=== PATIENT | male | born 1940 | race Caucasian/White ===

== ENCOUNTER 2016-06-20 10:00 | Outpatient (CLI) | payer OTHER, MEDICARE ==
[2016-06-20] MEDS ORDERED: ACETAMINOPHEN 325 MG TABLET PO PRN (10:02)
[2016-06-20] MEDS ORDERED: diphenhydrAMINE 25 MG CAPSULE PO PRN (10:02)
[2016-06-20] MEDS ORDERED: INFLIXIMAB IV ONE (10:02)
[2016-06-20] MEDS ORDERED: SODIUM CHLORIDE 0.9% IV ONE (10:02)
[2016-06-20] MEDS ORDERED: Sodium Chloride 0.9% 50 ML IV PRN (10:02)
[2016-06-20 10:29] VITALS: RESP 20; TEMP 97.1
[2016-06-20] MEDS: NORMAL SALINE 10 ML SYRINGE FLUSH IVP PRN ×2 (10:30→12:31)
== END 2016-06-20 12:35 | disposition home or self-care (01) ==
LOC: IV THERAPY 10:00
PROVIDERS: ATTEND Emergency Medicine
DX: M06.89 Other specified rheumatoid arthritis, multiple sites (principal)
CPT/HCPCS: 99211; J1745; 96365; 96366; J7050

== ENCOUNTER 2016-07-21 14:51 | Outpatient (CLI) | payer OTHER, MEDICARE ==
[2016-07-21] MEDS ORDERED: SODIUM CHLORIDE 0.9% IV ONE (15:00)
[2016-07-21] MEDS ORDERED: diphenhydrAMINE 25 MG CAPSULE PO PRN (15:00)
[2016-07-21] MEDS ORDERED: ACETAMINOPHEN 325 MG TABLET PO PRN (15:00)
[2016-07-21] MEDS ORDERED: INFLIXIMAB IV ONE (15:00)
[2016-07-21] MEDS: NORMAL SALINE 10 ML SYRINGE FLUSH IVP PRN ×2 (15:14→17:20)
[2016-07-21 16:26] VITALS: RESP 14; TEMP 97.3
== END 2016-07-21 17:20 | disposition home or self-care (01) ==
LOC: IV THERAPY 14:51
PROVIDERS: ATTEND Personal Emergency Response Attendant
DX: M06.89 Other specified rheumatoid arthritis, multiple sites (principal)
CPT/HCPCS: 96365; 96366; 99211; J1745; J7050

== ENCOUNTER → 2016-08-12 | Outpatient (CLI) | payer OTHER, MEDICARE ==
[2016-08-12 06:18] LABS: HEMATOCRIT 47.3 % (42.0-52.0); MEAN CORPUSCULAR HEMOGLOBIN 30.6 PG (27-31); MEAN CORPUSCULAR HGB CONC 33.8 g/dL (33-37); MEAN PLATELET VOLUME 9.3 FL (7.4-12.2); RDW COEFFICIENT OF VARIATION 14.3 % (11.5-14.5); RED BLOOD COUNT 5.23 10^6/uL (4.70-6.10); WHITE BLOOD COUNT 9.47 10^3/uL (4.8-10.8)
[2016-08-12 06:29] LABS: BILIRUBIN,TOTAL 0.8 mg/dL (0.3-1.2); CALCIUM 9.6 mg/dL (8.7-10.7); LDL CHOLESTEROL,CALCULATED 63.8 mg/dL; TOTAL PROTEIN 7.6 g/dL (6.1-8.0)
[2016-08-12 06:45] LABS: PLATELET MORPHOLOGY COMMENT SEE COMMENTS (NORM)
[2016-08-12 06:47] LABS: BAND NEUTROPHILS % 1 % (0-10); BASOPHILS % (MANUAL) 0 % (0-1); EOSINOPHILS % (MANUAL) 5 % (0-8); LYMPHOCYTES % (MANUAL) 32 % (10-50); METAMYELOCYTES % 0 %; MONOCYTES % (MANUAL) 11 % (0-12); MYELOCYTES % 0 %; NEUTROPHILS % (MANUAL) 51 % (50-80); PROMYELOCYTES % 0 %
[2016-08-12 07:42] LABS: ERYTHROCYTE SEDIMENTATION RATE 6 MM/HR (0-15)
== END ==
LOC: LAB 06:04
PROVIDERS: ATTEND Internal Medicine
DX: M06.89 Other specified rheumatoid arthritis, multiple sites (principal); E78.5 Hyperlipidemia, unspecified; I10 Essential (primary) hypertension
CPT/HCPCS: 36415; 80053; 80061; 82550; 85007; 85652

== ENCOUNTER 2016-08-26 08:58 | Outpatient (CLI) | payer OTHER, MEDICARE ==
[2016-08-26] MEDS ORDERED: SODIUM CHLORIDE 0.9% IV ONE (09:00)
[2016-08-26] MEDS ORDERED: INFLIXIMAB IV ONE (09:00)
[2016-08-26] MEDS ORDERED: LIDOCAINE W/ SODIUM BICARB 0.5 ML SYR SUBD PRN (09:00)
[2016-08-26] MEDS ORDERED: HEPARIN 500 UNIT/5 ML SYRINGE FOR CENTRAL LINE IVP PRN (09:00)
[2016-08-26] MEDS ORDERED: NORMAL SALINE 10 ML SYRINGE FLUSH IVP PRN (09:00)
[2016-08-26 09:30] VITALS: RESP 20; TEMP 97.4
== END 2016-08-26 11:40 | disposition home or self-care (01) ==
LOC: IV THERAPY 08:58
PROVIDERS: ATTEND Internal Medicine
DX: M06.89 Other specified rheumatoid arthritis, multiple sites (principal)
CPT/HCPCS: 96365; 96366; 99211; J1745; J7050

== ENCOUNTER 2016-10-03 16:37 | Outpatient (CLI) | payer OTHER, MEDICARE ==
[~2016-10-03 16:37] MED LIST: ACETAMINOPHEN 325 MG TABLET PO PRN; INFLIXIMAB IV ONE; NORMAL SALINE 10 ML SYRINGE FLUSH IVP PRN; SODIUM CHLORIDE 0.9% IV ONE; diphenhydrAMINE 25 MG CAPSULE PO PRN
[2016-10-03 17:23] VITALS: RESP 20; TEMP 97.8
== END 2016-10-05 09:00 | disposition home or self-care (01) ==
LOC: IV THERAPY 16:37
PROVIDERS: ATTEND Family Medicine
DX: M06.89 Other specified rheumatoid arthritis, multiple sites (principal)
CPT/HCPCS: 96365; 96366; 99211; J1745; J7050

== ENCOUNTER 2016-11-06 08:51 | Outpatient (CLI) | payer OTHER, MEDICARE ==
[2016-11-06] MEDS ORDERED: LIDOCAINE W/ SODIUM BICARB 0.5 ML SYR SUBD PRN (09:00)
[2016-11-06] MEDS ORDERED: NORMAL SALINE 10 ML SYRINGE FLUSH IVP PRN (09:00)
[2016-11-06] MEDS ORDERED: SODIUM CHLORIDE 0.9% IV ONE (09:00)
[2016-11-06] MEDS ORDERED: HEPARIN 500 UNIT/5 ML SYRINGE FOR CENTRAL LINE IVP PRN (09:00)
[2016-11-06] MEDS ORDERED: INFLIXIMAB IV ONE (09:00)
[2016-11-06 11:24] VITALS: RESP 16; TEMP 97.5
== END 2016-11-06 11:30 | disposition home or self-care (01) ==
LOC: IV THERAPY 08:51
PROVIDERS: ATTEND Personal Emergency Response Attendant
DX: M06.89 Other specified rheumatoid arthritis, multiple sites (principal)
CPT/HCPCS: 96365; 96366; 99211; J1745; J7050

== ENCOUNTER → 2016-11-19 | Outpatient (CLI) | payer OTHER, MEDICARE ==
[2016-11-19 05:50] LABS: BASOPHILS # (AUTO) 0.06 10*3/UL; BASOPHILS % (AUTO) 0.7 % (0-1); EOSINOPHILS # (AUTO) 0.38 10*3/UL; EOSINOPHILS % (AUTO) 4.7 % (0-8); HEMATOCRIT 46.6 % (42.0-52.0); LYMPHOCYTES # (AUTO) 2.51 10*3/uL; MEAN CORPUSCULAR HEMOGLOBIN 31.2 PG (27-31); MEAN CORPUSCULAR HGB CONC 34.3 g/dL (33-37); MEAN CORPUSCULAR VOLUME 90.8 FL (80-90); MONOCYTES % (AUTO) 17.5 % (5-15); NEUTROPHILS # (AUTO) 3.64 10*3/UL; NEUTROPHILS % (AUTO) 45.6 % (50-80); RED BLOOD COUNT 5.13 10^6/uL (4.70-6.10)
[2016-11-19 05:51] LABS: PLATELET MORPHOLOGY COMMENT NORMAL MORPHOLOGY (NORM); RBC MORPHOLOGY COMMENT NORMAL MORPHOLOGY (NORM); WBC MORPHOLOGY COMMENT NORMAL MORPHOLOGY (NORM)
[2016-11-19 06:02] LABS: SERUM ALBUMIN 3.8 g/dL (3.5-4.8)
== END ==
LOC: LAB 05:37
PROVIDERS: ATTEND Internal Medicine
DX: M06.9 Rheumatoid arthritis, unspecified (principal); I10 Essential (primary) hypertension; E78.5 Hyperlipidemia, unspecified; C61 Malignant neoplasm of prostate; I71.4 Abdominal aortic aneurysm, without rupture
CPT/HCPCS: 36415; 80053; 85025; 99214; G0463

== ENCOUNTER 2016-12-11 08:58 | Outpatient (CLI) | payer OTHER, MEDICARE ==
[2016-12-11] MEDS ORDERED: NORMAL SALINE 10 ML SYRINGE FLUSH IVP PRN (09:00)
[2016-12-11] MEDS ORDERED: HEPARIN 500 UNIT/5 ML SYRINGE FOR CENTRAL LINE IVP PRN (09:00)
[2016-12-11] MEDS ORDERED: LIDOCAINE W/ SODIUM BICARB 0.5 ML SYR SUBD PRN (09:00)
[2016-12-11] MEDS ORDERED: INFLIXIMAB IV ONE (09:15)
[2016-12-11] MEDS ORDERED: SODIUM CHLORIDE 0.9% IV ONE (09:15)
[2016-12-11 09:25] VITALS: RESP 20; TEMP 97.8
== END 2016-12-11 11:57 | disposition home or self-care (01) ==
LOC: IV THERAPY 08:58 → LAB 08:58 → IV THERAPY 11:57
PROVIDERS: ATTEND Internal Medicine
DX: M06.9 Rheumatoid arthritis, unspecified (principal)
CPT/HCPCS: 96365; 96366; 99211; J1745; J7050

== ENCOUNTER 2017-01-13 09:04 | Outpatient (CLI) | payer OTHER, MEDICARE ==
[2017-01-13] MEDS ORDERED: NORMAL SALINE 10 ML SYRINGE FLUSH IVP PRN (09:30)
[2017-01-13] MEDS ORDERED: HEPARIN 500 UNIT/5 ML SYRINGE FOR CENTRAL LINE IVP PRN (09:30)
[2017-01-13] MEDS ORDERED: INFLIXIMAB IV ONE (09:30)
[2017-01-13] MEDS ORDERED: SODIUM CHLORIDE 0.9% IV ONE (09:30)
[2017-01-13 09:33] VITALS: RESP 20; TEMP 98
== END 2017-01-13 13:40 | disposition home or self-care (01) ==
LOC: LAB 09:04 → IV THERAPY 09:04
PROVIDERS: ATTEND Internal Medicine
DX: M06.9 Rheumatoid arthritis, unspecified (principal)
CPT/HCPCS: 96365; 96366; 99211; J1745; J7050